=== PATIENT | male | born 1955 | race Two or more races ===

== ENCOUNTER 2024-04-11 21:34 | Emergency (ER) | payer MEDICARE ==
[~2024-04-11] VITALS: Ht 170.2 cm; Wt 93.0 kg
[2024-04-11 22:49] VITALS: BP 150/79; TEMP 98.6; O2SAT 98
== END 2024-04-11 22:50 | disposition home or self-care (01) ==
LOC: ER 21:36
DX: T45.511A Poisoning by anticoagulants, accidental (unintentional), initial encounter (principal); R03.0 Elevated blood-pressure reading, without diagnosis of hypertension; E11.9 Type 2 diabetes mellitus without complications; Z98.890 Other specified postprocedural states; Y92.89 Other specified places as the place of occurrence of the external cause
CPT/HCPCS: A4606; A4663